=== PATIENT | female | born 1970 | race Caucasian/White ===

== ENCOUNTER 2018-10-02 19:57 | Emergency (ER) | payer SELFPAY | END 2018-10-02 20:36 | disposition home or self-care (01) | LOC: ERS 19:57 | DX: Z04.1 Encounter for examination and observation following transport accident (principal); F32.9 Major depressive disorder, single episode, unspecified; F41.9 Anxiety disorder, unspecified; I10 Essential (primary) hypertension; V43.52XA Car driver injured in collision with other type car in traffic accident, initial encounter ==

== ENCOUNTER 2018-10-09 09:22 | Emergency (ER) | payer OTHER, SELFPAY ==
--- NOTE | 2018-10-09 10:12 | CT ---
CT Brain WO Con: 10/09/2018 9:55 AM CLINICAL HISTORY: Posttraumatic pain. COMPARISON: None. FINDINGS: Hemorrhage: None. Ventricular system: Normal in size and morphology for the patient's age. Cerebral parenchyma: Normal Midline shift: None. Mass: No mass effect. Calvarium: Normal. Visualized Paranasal sinuses: Clear. IMPRESSION: No acute intracranial abnormalities.
--- NOTE | 2018-10-09 10:24 | RAD ---
PA AND LATERAL VIEWS CHEST: HISTORY: Trauma, chest pain. FINDINGS: The heart size is normal. The lungs are expanded without lobar consolidation, pneumothoraces, or ple ural effusions. No acute osseous abnormalities are seen. POS: [facility]
== END 2018-10-09 10:22 | disposition home or self-care (01) ==
LOC: SCSER 09:22
DX: S06.0X0A Concussion without loss of consciousness, initial encounter (principal); I10 Essential (primary) hypertension; F41.9 Anxiety disorder, unspecified; F32.9 Major depressive disorder, single episode, unspecified; Z79.899 Other long term (current) drug therapy; V43.52XA Car driver injured in collision with other type car in traffic accident, initial encounter
CPT/HCPCS: 70450; 71046